=== PATIENT | female | born 1980 | race African-American/Black ===

== ENCOUNTER 2016-06-22 12:31 | Emergency (ER) | payer MEDICARE, OTHER ==
[~2016-06-22] VITALS: Ht 167.6 cm; Wt 100.2 kg
[~2016-06-22 12:31] MED LIST: NAPR550T PO; ORPH100T PO
[2016-06-22] MEDS ORDERED: DICYCLOMINE HCL 10 MG CAPSULE PO ONE (15:00)
[2016-06-22 16:22] LABS: CALCIUM 8.6 mg/dL (8.5-10.1); CREATININE 0.7 mg/dL (0.6-1.0); GFR 114.6; POTASSIUM 3.8 mmol/L (3.5-5.1)
--- NOTE | 2016-06-22 16:39 | PHYS DOC ---
Past Medical History Past Medical History: Other Additional Past Medical Histor: CEREBRAL PALSY Past Surgical History: Other Additional Past Surgical Histo: OVARIAN CYST REMOVAL, R. FOOT, rt arm surgery Alcohol Use: Occasionally Drug Use: None Adult General Chief Complaint Chief Complaint: DIARRHEA HPI HPI Patient is a 36 year old female who presents with 2 weeks of intermittent diarrhea and nausea with nonbloody nonbilious emesis. She was sent here from work because of her symptoms. States she has few episodes of emesis, however she has many episodes of loose stools. Her loose stools occur at various times through the day. She has crampy generalized abdominal pain associated. She denies fever or chills, dysuria, hematuria, bloody stools, sick contacts, recent travel, recent antibiotics. Review of Systems Review of Systems Constitutional: Denies fever or chills [] Eyes: Denies change in visual acuity, redness, or eye pain [] HENT: Denies nasal congestion or sore throat [] Respiratory: Denies cough or shortness of breath [] Cardiovascular: No additional information not addressed in HPI [] GI: Denies bloody stools or bloody emesis [] : Denies dysuria or hematuria [] Musculoskeletal: Denies back pain or joint pain [] Integument: Denies rash or skin lesions [] Neurologic: Denies headache, focal weakness or sensory changes [] Endocrine: Denies polyuria or polydipsia [] Current Medications Current Medications Current Medications Medications (Trade) Dose Ordered Sig/Hiro Start Time Stop Time Status Last Admin Dose Admin Dicyclomine HCl (Bentyl) 10 mg 1X ONCE 06/22/16 15:00 06/22/16 15:01 DC 06/22/16 14:50 10 MG Allergies Allergies Allergies Coded Allergies Type Severity Reaction Last Updated Verified Sulfa (Sulfonamide Antibiotics) Allergy Intermediate 11/14/14 Yes Physical Exam Physical Exam Constitutional: Well developed, well nourished, no acute distress, non-toxic appearance. [] HENT: Normocephalic, atraumatic, bilateral external ears normal, oropharynx moist, nose normal. [] Eyes: PERRLA, EOMI. [] Neck: Normal range of motion, supple. [] Cardiovascular:Heart rate regular rhythm [] Lungs & Thorax: Bilateral breath sounds clear to auscultation [] Abdomen: Bowel sounds normal, soft, no tenderness. [] Skin: Warm, dry, no erythema, no rash. [] Back: No tenderness, no CVA tenderness. [] Extremities: No tenderness, ROM intact. [] Neurologic: Alert and oriented X 3, normal motor function, normal sensory function, no focal deficits noted. [] Psychologic: Affect normal, judgement normal, mood normal. [] Current Patient Data Vital Signs Vital Signs Date Time Temp Pulse Resp B/P Pulse Ox O2 Delivery O2 Flow Rate FiO2 06/22/16 16:50 64 18 150/76 96 Room Air 06/22/16 12:52 97.9 97.9 Lab Values Laboratory Tests Test 06/22/16 16:00 Sodium Level 140mmol/L (136-145) Potassium Level 3.8mmol/L (3.5-5.1) Chloride Level 104mmol/L (98-107) Carbon Dioxide Level 27mmol/L (21-32) Anion Gap 9 (6-14) Blood Urea Nitrogen 8mg/dL (7-20) Creatinine 0.7mg/dL (0.6-1.0) Estimated GFR (Cockcroft-Gault) 114.6 Glucose Level 86mg/dL (70-99) Calcium Level 8.6mg/dL (8.5-10.1) Laboratory Tests 06/22/16 16:00 Course & Med Decision Making Course & Med Decision Making Pertinent Labs and Imaging studies reviewed. (See chart for details) Workup is unremarkable. She is feeling well at this time and would like to go home. She is tolerating oral intake. Return precautions given. She understands and agrees with plan. Dragon Disclaimer Dragon Disclaimer This electronic medical record was generated, in whole or in part, using a voice recognition dictation system. Departure Departure Impression: Primary Impression: Nausea vomiting and diarrhea Disposition: HOME, SELF-CARE Condition: STABLE Referrals: KRISTINE PIZARRO JR, MD (PCP) Patient Instructions: Diarrhea, [id number] Additional Instructions: Take Bentyl as needed for abdominal pain. Follow-up with your primary care doctor within one week. Return for any concerns. Scripts Dicyclomine Hcl (Bentyl)10 Mg Capsule1 Cap PO TID PRN STOMACH CRAMPING #20 CAP Prov:Solomon CALVO MD 06/22/16 Solomon CALVO MD Jun 22, 2016 16:39
[2016-06-22] MEDS ORDERED: DICY10CA53 PO (16:41)
[2016-06-22 16:50] VITALS: BP 150/76
== END 2016-06-22 16:54 | disposition home or self-care (01) ==
LOC: ER 12:31
DX: R11.2 Nausea with vomiting, unspecified (principal); Z88.2 Allergy status to sulfonamides
CPT/HCPCS: 36415; 80048; 99283

== ENCOUNTER 2016-07-10 07:53 | Emergency (ER) | payer MEDICARE, OTHER ==
[~2016-07-10 07:53] MED LIST changes: +DICY10CA53 PO
[2016-07-10 09:08] VITALS: BP 115/75
[2016-07-10] MEDS ORDERED: DEXAMETHASONE SOD PHOS 20 MG/5 ML VIAL. IM ONE (09:15)
[2016-07-10] MEDS ORDERED: KETOROLAC TROMETHAMINE 60 MG/2 ML INJ. IM ONE (09:15)
[2016-07-10] MEDS ORDERED: ORPH100T PO (09:16)
[2016-07-10] MEDS ORDERED: NAPR550T PO (09:16)
--- NOTE | 2016-07-10 09:16 | PHYS DOC ---
Past Medical History Past Medical History: Other Additional Past Medical Histor: CEREBRAL PALSY Past Surgical History: Other Additional Past Surgical Histo: OVARIAN CYST REMOVAL, R. FOOT, rt arm surgery Alcohol Use: Occasionally Drug Use: None Adult General Chief Complaint Chief Complaint: LOWER EXT PAIN [facility] HPI Patient is a 36 year old female with no significant medical history who presents today complaining of myofascial pain on the right lower extremity that has been going on for 2 weeks. Patient states she has history of myofascial pain. Patient denies any trauma. She has not tried anything for her pain. Review of Systems Review of Systems Constitutional: Denies fever or chills [] Eyes: Denies change in visual acuity, redness, or eye pain [] HENT: Denies nasal congestion or sore throat [] Respiratory: Denies cough or shortness of breath [] Cardiovascular: No additional information not addressed in HPI [] GI: Denies abdominal pain, nausea, vomiting, bloody stools or diarrhea [] : Denies dysuria or hematuria [] Musculoskeletal: Right lower extremity myofascial pain Integument: Denies rash or skin lesions [] Neurologic: Denies headache, focal weakness or sensory changes [] Endocrine: Denies polyuria or polydipsia [] Allergies Allergies Allergies Coded Allergies Type Severity Reaction Last Updated Verified Sulfa (Sulfonamide Antibiotics) Allergy Intermediate 11/14/14 Yes Physical Exam Physical Exam Constitutional: Well developed, well nourished, no acute distress, non-toxic appearance. [] HENT: Normocephalic, atraumatic, bilateral external ears normal, oropharynx moist, no oral exudates, nose normal. [] Eyes: PERRLA, EOMI, conjunctiva normal, no discharge. [] Neck: Normal range of motion, no tenderness, supple, no stridor. [] Cardiovascular:Heart rate regular rhythm, no murmur [] Lungs & Thorax: Bilateral breath sounds clear to auscultation [] Abdomen: Bowel sounds normal, soft, no tenderness, no masses, no pulsatile masses. [] Skin: Warm, dry, no erythema, no rash. [] Back: No tenderness, no CVA tenderness. [] Extremities: Right lower extremity with no obvious deformity. No tenderness on palpation of the right lower extremity. Full range of motion to the right lower extremity. Adequate internal rotation and external rotation of the right hip. Adequate flexion and extension of the right lower extremity. +2 right pedal pulse. Sensation intact to the right lower extremity. Neurologic: Alert and oriented X 3, normal motor function, normal sensory function, no focal deficits noted. [] Psychologic: Affect normal, judgement normal, mood normal. [] EKG EKG [] Radiology/Procedures Radiology/Procedures [] Course & Med Decision Making Course & Med Decision Making Pertinent Labs and Imaging studies reviewed. (See chart for details) Patient is in the ED with complaint of myofascial pain chronic in nature to the right lower extremity. Given Toradol and Decadron in the ED. Discharged with Anaprox, Medrol Dosepak, and Norflex. Follow up with [facility] in the next 7 days. Dragon Disclaimer Dragon Disclaimer This electronic medical record was generated, in whole or in part, using a voice recognition dictation system. Departure Departure Impression: Primary Impression: Myofascial pain Disposition: HOME, SELF-CARE Condition: STABLE Referrals: KRISTINE PIZARRO JR, MD (PCP) Follow-up with your own doctor in 7 days Patient Instructions: Myofascial Pain Syndrome Additional Instructions: You were seen for myofascial pain to the right lower extremity. Please take the prescribed medicines as needed. Follow-up with your own doctor at [facility] in the next 7 days. Scripts Orphenadrine Citrate (ORPHENADRINE CITRATE) 100 Mg Tablet.er 1 TAB PO BID, #30 TAB 1 Refill Prov: ADAM LI APRN 07/10/16 Naproxen Sodium (ANAPROX DS) 550 Mg Tablet 1 TAB PO PRN Q12HRS, #60 TAB Prov: ADAM LI APRN 07/10/16 ADAM LI APRN July 10, 2016 09:16
== END 2016-07-10 09:30 | disposition home or self-care (01) ==
LOC: ER 07:53
DX: M79.1 Myalgia (principal); M79.604 Pain in right leg; G80.9 Cerebral palsy, unspecified; Z88.2 Allergy status to sulfonamides
CPT/HCPCS: 96372; 99284; J1100; J1885

== ENCOUNTER 2018-06-10 04:12 | Emergency (ER) | payer MEDICARE, OTHER ==
[~2018-06-10] VITALS: Ht 167.6 cm; Wt 104.3 kg
[~2018-06-10 04:12] MED LIST changes: +NAPR-682 PO; -NAPR550T PO
[2018-06-10 04:31] VITALS: BP 162/92
[2018-06-10 04:44] LABS: BILIRUBIN,URINE NEGATIVE (NEG); CLARITY,URINE CLEAR; COLOR,URINE YELLOW; NITRITE,URINE NEGATIVE (NEG); PROTEIN,URINE NEGATIVE (NEG-TRACE)
--- NOTE | 2018-06-10 04:44 | PHYS DOC ---
Past Medical History Past Medical History: Other Additional Past Medical Histor: CEREBRAL PALSY Past Surgical History: Other Additional Past Surgical Histo: OVARIAN CYST REMOVAL, R. FOOT, rt arm surgery Alcohol Use: Occasionally Drug Use: None Adult General Chief Complaint Chief Complaint: VAGINAL PROBLEM [facility] Patient is a 38-year-old female who presents with complaint of fishy smell to her vagina for the last couple of days. She denies any significant vaginal discharge. She states that she is just concerned because of the fishy odor. She denies any urinary discomfort and has had no abdominal pain, nausea or vomiting. Review of Systems Review of Systems Constitutional: Denies fever or chills [] Respiratory: Denies cough or shortness of breath [] Cardiovascular: No additional information not addressed in HPI [] GI: Denies abdominal pain, nausea, vomiting or diarrhea [] : Denies dysuria or hematuria [] Allergies Allergies Allergies Coded Allergies Type Severity Reaction Last Updated Verified Sulfa (Sulfonamide Antibiotics) Allergy Intermediate 11/14/14 Yes Physical Exam Physical Exam Constitutional: Well developed, well nourished, no acute distress, non-toxic appearance. [] Cardiovascular:Heart rate regular rhythm, no murmur [] Lungs & Thorax: Bilateral breath sounds clear to auscultation [] Abdomen: Bowel sounds normal, soft, no tenderness. [] Skin: Warm, dry, no erythema, no rash. [] Current Patient Data Vital Signs Vital Signs Date Time Temp Pulse Resp B/P (MAP) Pulse Ox O2 Delivery O2 Flow Rate FiO2 06/10/18 04:31 98.8 90 16 162/92 (115) 97 Room Air 98.8 Lab Values Laboratory Tests Test 06/10/18 04:23 06/10/18 04:38 Urine Collection Type Unknown Urine Color Yellow Urine Clarity Clear Urine pH 6.0 Urine Specific [place] >=1.030 Urine Protein Negative mg/dL (NEG-TRACE) Urine Glucose (UA) Negative mg/dL (NEG) Urine Ketones (Stick) Negative mg/dL (NEG) Urine Blood Negative (NEG) Urine Nitrite Negative (NEG) Urine Bilirubin Negative (NEG) Urine Urobilinogen Dipstick 1.0 mg/dL (0.2 mg/dL) Urine Leukocyte Esterase Negative (NEG) Urine RBC Occ /HPF (0-2) Urine WBC Rare /HPF (0-4) Urine Squamous Epithelial Cells Occ /LPF Urine Bacteria 0 /HPF (0-FEW) Urine Mucus Mod /LPF POC Urine HCG, Qualitative Hcg positive (Negative) Microbiology 06/10/18 Wet Prep - Final, Complete EKG EKG [] Radiology/Procedures Radiology/Procedures [] Course & Med Decision Making Course & Med Decision Making Pertinent Labs and Imaging studies reviewed. (See chart for details) [] Dragon Disclaimer Dragon Disclaimer This electronic medical record was generated, in whole or in part, using a voice recognition dictation system. Departure Departure Impression: Primary Impression: Bacterial vaginosis Additional Impression: Disposition: HOME, SELF-CARE Condition: STABLE Referrals: KRISTINE PIZARRO JR, MD (PCP) Patient Instructions: Bacterial Vaginosis, Scripts Metronidazole (FLAGYL) 500 Mg Tablet 1 TAB PO BID, #14 TAB Prov: WALESKA CARRIZALES Jr. DO 06/10/18 Problem Qualifiers Additional Impression: Weeks of gestation: unspecified Qualified Codes: Z34.90 - Encounter for supervision of normal , unspecified, unspecified trimester WALESKA CARRIZALES Jr. DO Jun 10, 2018 04:44
[2018-06-10 04:53] LABS: BACTERIA,URINE 0 /HPF (0-FEW); RBC,URINE OCC /HPF (0-2); SQUAMOUS EPITHELIAL CELL,UR OCC /LPF; WBC,URINE RARE /HPF (0-4)
[2018-06-10] MEDS ORDERED: METR500T PO (06:05)
[2018-06-12 14:14] LABS: GC PROBE Negative (Negative)
== END 2018-06-10 06:27 | disposition home or self-care (01) ==
LOC: ER 04:12
DX: Z33.1 Pregnant state, incidental (principal); N76.0 Acute vaginitis; B96.89 Other specified bacterial agents as the cause of diseases classified elsewhere; Z88.2 Allergy status to sulfonamides
CPT/HCPCS: 81001; 81025; 87491; 87591; 99283; Q0111

== ENCOUNTER 2018-06-24 16:59 | Emergency (ER) | payer MEDICARE, OTHER ==
[~2018-06-24] VITALS: Ht 167.6 cm; Wt 104.3 kg
[~2018-06-24 16:59] MED LIST changes: +METR500T PO
[2018-06-24 17:23] VITALS: BP 139/85
[2018-06-24] MEDS ORDERED: IBUPROFEN 400 MG TABLET. PO ONE (18:15)
[2018-06-24] MEDS ORDERED: NAPR-683 PO (18:25)
--- NOTE | 2018-06-24 18:25 | PHYS DOC ---
Past Medical History Past Medical History: Other Additional Past Medical Histor: CEREBRAL PALSY Past Surgical History: Other Additional Past Surgical Histo: OVARIAN CYST REMOVAL, R. FOOT, rt arm surgery Alcohol Use: Occasionally Drug Use: None Adult General Chief Complaint Chief Complaint: HAND PROBLEM HPI HPI Patient is a 38 year old right handed female who presents with complaining of injury to right upper extremity. Patient had a fall from a standing position and landed on right wrist and forearm and complaining of pain in right wrist and forearm. Patient rated her pain as a severe pain and denies other injuries and loss of consciousness. Patient had history of previous right upper extremity surgeries with deformity. Review of Systems Review of Systems Constitutional: Denies fever or chills [] Eyes: Denies change in visual acuity, redness, or eye pain [] HENT: Denies nasal congestion or sore throat [] Respiratory: Denies cough or shortness of breath [] Cardiovascular: No additional information not addressed in HPI [] GI: Denies abdominal pain, nausea, vomiting, bloody stools or diarrhea [] : Denies dysuria or hematuria [] Musculoskeletal: Denies back pain, reports joint pain [] Integument: Denies rash or skin lesions [] Neurologic: Denies headache, focal weakness or sensory changes [] Endocrine: Denies polyuria or polydipsia [] All other systems were reviewed and found to be within normal limits, except as documented in this note. Current Medications Current Medications Current Medications Medications (Trade) Dose Ordered Sig/Hiro Start Time Stop Time Status Last Admin Dose Admin Ibuprofen (Motrin) 800 mg 1X ONCE 06/24/18 18:15 06/24/18 18:16 DC 06/24/18 18:11 800 MG Allergies Allergies Allergies Coded Allergies Type Severity Reaction Last Updated Verified Sulfa (Sulfonamide Antibiotics) Allergy Intermediate 11/14/14 Yes Physical Exam Physical Exam Constitutional: Well nourished, mild distress, non-toxic appearance. [] HENT: Normocephalic, atraumatic. Eyes: PERRLA, EOMI, conjunctiva normal, no discharge. [] Neck: Normal range of motion, no tenderness, supple, no stridor. [] Cardiovascular:Heart rate regular rhythm, no murmur [] Lungs & Thorax: Bilateral breath sounds clear to auscultation [] Extremities: Right upper extremity with or discomfort and deformity of proximal forearm and fingers with mild tenderness in distal forearm without deformity in the distal forearm No tenderness, no cyanosis, no clubbing, ROM intact, no edema. [] Neurologic: Alert and oriented X 3. Current Patient Data Vital Signs Vital Signs Date Time Temp Pulse Resp B/P (MAP) Pulse Ox O2 Delivery O2 Flow Rate FiO2 06/24/18 17:23 97.4 92 18 139/85 (103) 98 Room Air 97.4 EKG EKG [] Radiology/Procedures Radiology/Procedures [facility] [address] [place] [address] IMAGING REPORT Signed PATIENT: SHARIF CARRIZALES ACCOUNT: [id number] : 1980 LOCATION: ER AGE: 38 SEX: F EXAM STATUS: DEP ER ORD. PHYSICIAN: JOSSY LONDONO MD REASON: injury PROCEDURE: FOREARM RIGHT 3 views right wrist and 2 views right forearm HISTORY: Pain after fall 3 views right wrist: AP lateral oblique views right wrist There is deformity of the distal radius and ulna and deformity of the proximal row of carpal bones with the lunate projecting between the distal radius and ulna. There is no interruption of cortex to suggest a fracture. IMPRESSION: Deformity could be secondary to old injury. No definite acute findings. End impression Two-view right forearm: AP and lateral views the right forearm were obtained There is deformity of the distal radius and ulna. There is no interruption of cortex suggestive of fracture. IMPRESSION: No acute findings. Electronically signed by: Liss Mello III, MD (06/24/2018 8:39 PM) [id number] DICTATED and SIGNED BY: LISS MELLO III, MD DATE: 06/24/182038 Course & Med Decision Making Course & Med Decision Making Pertinent Imaging studies reviewed. (See chart for details) Evaluation of patient in ER showed 38-year-old male patient with history of previous right upper extremity surgeries and deformity presented with a fall and injury to the same area. X-ray did not show fracture. Arnold wrap was applied and she was advised to follow-up with her primary care physician/orthopedic physician. Dragon Disclaimer Dragon Disclaimer This electronic medical record was generated, in whole or in part, using a voice recognition dictation system. Departure Departure Impression: Primary Impression: Contusion of forearm, right Additional Impression: Fall Disposition: 01 HOME, SELF-CARE (at 1823) Condition: STABLE Referrals: KRISTINE PIZARRO JR, MD (PCP) Patient Instructions: Contusion Additional Instructions: Apply ice on the affected area Follow-up with your primary care physician in 3-5 days Return to ER if not getting better Scripts Naproxen (NAPROSYN) 500 Mg Tablet 1 TAB PO BID for pain, #20 TAB Prov: JOSSY LONDONO MD 06/24/18 Problem Qualifiers Primary Impression: Contusion of forearm, right Encounter type: initial encounter Qualified Codes: S50.11XA - Contusion of right forearm, initial encounter Additional Impression: Fall Encounter type: subsequent encounter Qualified Codes: W19.XXXD - Unspecified fall, subsequent encounter JOSSY LONDONO MD Jun 24, 2018 18:25
--- NOTE | 2018-06-24 20:43 | RAD ---
3 views right wrist and 2 views right forearm HISTORY: Pain after fall 3 views right wrist: AP lateral oblique views right wrist There is deformity of the distal radius and ulna and deformity of the proximal row of carpal bones with the lunate projecting between the distal radius and ulna. There is no interruption of cortex to suggest a fracture. IMPRESSION: Deformity could be secondary to old injury. No definite acute findings. End impression Two-view right forearm: AP and lateral views the right forearm were obtained There is deformity of the distal radius and ulna. There is no interruption of cortex suggestive of fracture. IMPRESSION: No acute findings. Electronically signed by: Osmany Jimenez III, MD (06/24/2018 8:39 PM) [id number]
== END 2018-06-24 18:31 | disposition home or self-care (01) ==
LOC: ER 16:59
DX: S50.11XA Contusion of right forearm, initial encounter (principal); M25.531 Pain in right wrist; Z88.2 Allergy status to sulfonamides; W18.39XA Other fall on same level, initial encounter; Y93.89 Activity, other specified; Y92.89 Other specified places as the place of occurrence of the external cause; Y99.8 Other external cause status
CPT/HCPCS: 73090; 73110; 99284

== ENCOUNTER 2019-04-09 08:20 | Emergency (ER) | payer MEDICARE ==
[~2019-04-09] VITALS: Ht 167.6 cm; Wt 101.0 kg
[~2019-04-09 08:20] MED LIST changes: +NAPR-683 PO
[2019-04-09 08:34] VITALS: BP 144/80
[2019-04-09] MEDS ORDERED: IBUPROFEN 200 MG TABLET. PO ONE (08:45)
--- NOTE | 2019-04-09 08:51 | PHYS DOC ---
Past Medical History Past Medical History: Other Additional Past Medical Histor: CEREBRAL PALSY Past Surgical History: Other Additional Past Surgical Histo: OVARIAN CYST REMOVAL, R. FOOT, rt arm surgery Alcohol Use: Occasionally Drug Use: None Adult General Chief Complaint Chief Complaint: WRIST PAIN HPI HPI patient is a 39-year-old female who presents to the emergency department for evaluation. She states that 2 weeks ago, she picked up a child while at work, and in doing so somehow sprained her injured her right wrist. She is complaining of pain in the right wrist, which has persisted despite the use of stretching exercises she has tried to do. She denies any numbness or weakness, or any blunt injury. 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 She has had several surgeries on her wrists. There are no alleviating or exacerbating factors to her symptoms otherwise. Review of Systems Review of Systems Constitutional: Denies fever or chills [] Musculoskeletal: Denies back pain or joint pain, other than the right wrist [] Integument: Denies rash or skin lesions [] Neurologic: Denies headache, focal weakness or sensory changes [] Current Medications Current Medications Current Medications Medications (Trade) Dose Ordered Sig/Hiro Start Time Stop Time Status Last Admin Dose Admin Ibuprofen (Motrin) 600 mg 1X ONCE 04/09/19 08:45 04/09/19 08:46 DC 04/09/19 09:04 600 MG Allergies Allergies Allergies Coded Allergies Type Severity Reaction Last Updated Verified Sulfa (Sulfonamide Antibiotics) Allergy Intermediate 11/14/14 Yes Physical Exam Physical Exam PHYSICAL EXAM: HEENT: Atruamatic NECK: Supple, normal ROM, non-tender. CARDIAC: Regular Rate and Rhythm LUNGS: Clear Bilaterally EXTREMITIES: There are chronic-appearing deformities to the upper extremities bilaterally, with healed surgical scars. There is reduced range of motion to the upper extremities bilaterally and the wrists especially, with mild diffuse tenderness to palpation to the right wrist, without any crepitus, significant focal bony tenderness to palpation, or soft tissue swelling. Radial pulse, di stal sensation and motor function in the digits, and capillary refill is normal. Current Patient Data Vital Signs Vital Signs Date Time Temp Pulse Resp B/P (MAP) Pulse Ox O2 Delivery O2 Flow Rate FiO2 04/09/19 08:34 97.9 68 20 144/80 (101) 99 Room Air 97.9 EKG EKG [] Radiology/Procedures Radiology/Procedures PROCEDURE: WRIST 3V RIGHT WRIST 3V RIGHT History: Pain. Cerebral palsy. Technique: 3 views right wrist. 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 Distal radial and ulnar and proximal carpal row degenerative changes. No acute fracture. Deformity of the second metacarpal, unchanged. Impression: 1. No acute osseous abnormality. 2. 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 [] Course & Med Decision Making Course & Med Decision Making Pertinent studies reviewed. (See chart for details) [] Dragon Disclaimer Dragon Disclaimer This electronic medical record was generated, in whole or in part, using a voice recognition dictation system. Departure Departure Impression: Primary Impression: Wrist sprain Disposition: 01 HOME, SELF-CARE Condition: STABLE Referrals: KRISTINE PIZARRO JR, MD (PCP) NUHA RICHARDSON MD Patient Instructions: Wrist Sprain with [facility] Additional Instructions: Physical therapy is recommended for further outpatient treatment. Using ib uprofen 400-600mg every 6 hours as needed for pain. COURTNEY MIDDLETON MD Apr 09, 2019 08:51
--- NOTE | 2019-04-09 09:04 | RAD ---
WRIST 3V RIGHT History: Pain. Cerebral palsy. Technique: 3 views right wrist. 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 Distal radial and ulnar and proximal carpal row degenerative changes. No acute fracture. Deformity of the second metacarpal, unchanged. Impression: 1. No acute osseous abnormality. 2. 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 Electronically signed by: Juan Jose Yu DO (04/09/2019 9:01 AM) [email or web address]
== END 2019-04-09 09:21 | disposition home or self-care (01) ==
LOC: ER 08:20
DX: S63.501A Unspecified sprain of right wrist, initial encounter (principal); Z88.2 Allergy status to sulfonamides; X50.9XXA Other and unspecified overexertion or strenuous movements or postures, initial encounter; Y93.89 Activity, other specified; Y92.69 Other specified industrial and construction area as the place of occurrence of the external cause; Y99.0 Civilian activity done for income or pay
CPT/HCPCS: 73110; 99284